=== PATIENT | male | born 1955 | race Caucasian/White ===

== ENCOUNTER 2016-07-30 11:14 | Emergency (ER) | payer BC ==
[2016-07-30] MEDS ORDERED: Sodium Chloride 0.9% 10 ML Syringe FLUSH PRN (11:32)
[2016-07-30] MEDS ORDERED: methylPREDNISolone Sodium Succinate 125 MG/2 ML SDV IVPUSH ONE (11:45)
[2016-07-30] MEDS ORDERED: Labetalol 100 MG/20 ML MDV IVPUSH ONE ×7 (11:45→15:57)
[2016-07-30] MEDS ORDERED: Meclizine 12.5 MG Tab PO ONE (13:00)
--- NOTE | 2016-07-30 13:01 | EDM.PDOC ---
ED HPI DIZZINESS - General Chief Complaint: Neurological Problem Stated Complaint: [facility] Time Seen by Provider: 07/30/16 11:20 Source of Information: Reports: Patient, RN notes reviewed - History of Present Illness INITIAL COMMENTS - FREE TEXT/NARRATIVE: 61-year-old gentleman who had onset of quite severe vertigo this past morning about 4 hours ago. He states when he leaned down to put his shoes on and then brought his head back up he had the onset of vertigo-type dizziness. He did try go to work for a while but just not feel well and a general sense. He had some nausea and continued to have some vertigo-type dizziness with some movement. It no headache or chest discomfort. The vertigo then became worse and he started vomiting. At that Point he went to the [facility]. On arrival at the [facility] his blood pressure was extremely high in the 220/[address] elevation anteriorly. He continued to have no chest pain. However with his continued very high blood pressure readings, EKG abnormality he was transferred here for further evaluation. On arrival to the ED his major symptom continues to be that of the vertigo-type dizziness. He feels better when lying still but any type of motion makes him extremely nauseated. He describes spinning type of vertigo dizziness. He states when he looks at the window of the door right in front of him that the window seems to be "quivering". No throat or sinus discomfort. No ear discomfort. He continues to have no headache. No peripheral numbness, tingling or weakness. He states he has had borderline hypertension in the past but admits he has not had his blood pressure checked in a very long time. he does not smoke. - Related Data Allergies/ADRs: Allergies Allergy/AdvReac Type Severity Reaction Status Date / Time acetaminophen Allergy Rash Verified 07/30/16 11:19 [From Darvocet-N] propoxyphene Allergy Rash Verified 07/30/16 11:19 [From Darvocet-N] Home Meds: Home Meds Allopurinol [Allopurinol] 100 mg PO DAILY 07/30/16 [History] Aspirin [Ecotrin] 81 mg PO DAILY 07/30/16 [History] Rosuvastatin [Crestor] 40 mg PO DAILY 07/30/16 [History] Social & Family History - Tobacco Use Smoking Status *Q: Never Smoker - Recreational Drug Use Recreational Drug Use: No ED ROS GENERAL - Review of Systems Review Of Systems: See Below Constitutional: Denies: fever, chills, diaphoresis HEENT: Reports: Vertigo, Vision change (He states objects seem to be moving as he looks at them at this time). Denies: Ear discharge, Ear pain, Eye pain Respiratory: Denies: Shortness of Breath Cardiovascular: Denies: Chest pain Endocrine: Denies: fatigue GI/Abdominal: Reports: Nausea, Vomiting. Denies: Abdominal pain, Diarrhea Musculoskeletal: Denies: back pain, leg pain, joint pain Skin: Reports: no symptoms Neurological: Denies: Headache, Numbness, Tingling, Trouble Speaking, Weakness, Change in Speech, Gait Disturbance ED EXAM, DIZZINESS - Physical Exam Exam: See Below General Appearance: alert, mild distress Eye Exam: bilateral eye: PERRL Nystagmus: constant Ears: normal canal, normal TMs Nose: normal inspection Throat/Mouth: Normal inspection, Normal oropharynx Head Exam: atraumatic. No: facial swelling Vertigo: reproducible Neck: supple, full range of motion. No: lymphadenopathy (L), lymphadenopathy (R ) Respiratory/Chest: no respiratory distress, lungs clear, normal breath sounds GI/Abdominal: soft, non tender Neurological: alert, no motor/sensory deficits Back Exam: No: CVA tenderness (L), CVA tenderness (R) Extremities: normal inspection. No: pedal edema, leg pain Skin Exam: Warm, Normal color EKG INTERPRETATION EKG Date: 07/30/16 Rhythm: NSR P-wave: present QRS: normal ST-T: depressed (One and [address] elevation in V2, slight ST elevation in V3 T wave inversion in V6) Course - Vital Signs Last Recorded V/S: Last Vital Signs Temp 98.0 F 07/30/16 11:20 Pulse 69 07/30/16 15:06 Resp 17 07/30/16 11:20 BP 155/101 H 07/30/16 15:06 Pulse Ox 95 07/30/16 11:20 - Orders/Labs/Meds Orders: Active Orders 24 hr Category Date Time Status EKG 12 Lead [EKG Documentation Completion] [RC] STAT Care 07/30/16 11:34 Active Peripheral IV Care [RC] . DIRECTED Care 07/30/16 11:34 Active UA W/MICROSCOPIC [URIN] Stat Lab 07/30/16 15:30 Ordered Sodium Chloride 0.9% [Saline Flush] Med 07/30/16 11:32 Active 10 ml FLUSH ASDIRECTED PRN Peripheral IV Insertion Adult [OM.PC] Stat Oth 07/30/16 11:34 Ordered Medication Orders Sodium Chloride (Saline Flush) 10 ml FLUSH ASDIRECTED PRN PRN Reason: Keep Vein Open Last Admin: 07/30/16 12:00 Dose: 10 ml Labs: Laboratory Tests 07/30/16 07/30/16 07/30/16 Range/Units 11:45 11:55 11:55 WBC 12.68 H (4.23-9.07) K/mm3 RBC 5.47 (4.63-6.08) M/mm3 Hgb 16.3 (13.7-17.5) gm/L Hct 47.9 (40.1-51.0) % MCV 87.6 (79.0-92.2) fl MCH 29.8 (25.7-32.2) pg MCHC 34.0 (32.2-35.5) g/dl RDW Std Deviation 47.2 H (35.1-43.9) fL Plt Count 221 (163-337) K/mm3 MPV 10.2 (9.4-12.3) fl Neut % (Auto) 89.6 H (34.0-67.9) % Lymph % (Auto) 5.4 L (21.8-53.1) % [place] % (Auto) 3.3 L (5.3-12.2) % Eos % (Auto) 1.2 (0.8-7.0) Baso % (Auto) 0.3 (0.1-1.2) % Neut # (Auto) 11.36 H (1.78-5.38) K/mm3 Lymph # (Auto) 0.69 L (1.32-3.57) K/mm3 [place] # (Auto) 0.42 (0.30-0.82) K/mm3 Eos # (Auto) 0.15 (0.04-0.54) K/mm3 Baso # (Auto) 0.04 (0.01-0.08) K/mm3 Manual Slide Review Abnormal smear Sodium 142 (136-145) mEq/L Potassium 5.0 (3.5-5.1) mEq/L Chloride 106 (98-107) mEq/L Carbon Dioxide 28 (21-32) mEq/L Anion Gap 13.0 (5-15) BUN 19 H (7-18) mg/dL Creatinine 1.3 (0.7-1.3) mg/dL Est Cr Clr Drug Dosing 63.17 mL/min Estimated GFR (MDRD) 57 (>60) mL/min BUN/Creatinine Ratio 14.6 (14-18) Glucose 124 H (74-106) mg/dL Calcium 9.1 (8.5-10.1) mg/dL Total Bilirubin 0.5 (0.2-1.0) mg/dL AST 19 (15-37) U/L ALT 36 (16-63) U/L Alkaline Phosphatase 66 (46-116) U/L Troponin I 0.023 (0.00-0.056) ng/mL Total Protein 7.7 (6.4-8.2) g/dl Albumin 4.4 (3.4-5.0) g/dl Globulin 3.3 gm/dL Albumin/Globulin Ratio 1.3 (1-2) // Range/Units 14:15 WBC (4.23-9.07) K/mm3 RBC (4.63-6.08) M/mm3 Hgb (13.7-17.5) gm/L Hct (40.1-51.0) % MCV (79.0-92.2) fl MCH (25.7-32.2) pg MCHC (32.2-35.5) g/dl RDW Std Deviation (35.1-43.9) fL Plt Count (163-337) K/mm3 MPV (9.4-12.3) fl Neut % (Auto) (34.0-67.9) % Lymph % (Auto) (21.8-53.1) % [place] % (Auto) (5.3-12.2) % Eos % (Auto) (0.8-7.0) Baso % (Auto) (0.1-1.2) % Neut # (Auto) (1.78-5.38) K/mm3 Lymph # (Auto) (1.32-3.57) K/mm3 [place] # (Auto) (0.30-0.82) K/mm3 Eos # (Auto) (0.04-0.54) K/mm3 Baso # (Auto) (0.01-0.08) K/mm3 Manual Slide Review Sodium (136-145) mEq/L Potassium (3.5-5.1) mEq/L Chloride (98-107) mEq/L Carbon Dioxide (21-32) mEq/L Anion Gap (5-15) BUN (7-18) mg/dL Creatinine (0.7-1.3) mg/dL Est Cr Clr Drug Dosing mL/min Estimated GFR (MDRD) (>60) mL/min BUN/Creatinine Ratio (14-18) Glucose (74-106) mg/dL Calcium (8.5-10.1) mg/dL Total Bilirubin (0.2-1.0) mg/dL AST (15-37) U/L ALT (16-63) U/L Alkaline Phosphatase (46-116) U/L Troponin I 0.022 (0.00-0.056) ng/mL Total Protein (6.4-8.2) g/dl Albumin (3.4-5.0) g/dl Globulin gm/dL Albumin/Globulin Ratio (1-2) Meds: Medications Generic Name Dose Route Start Last Admin Trade Name Freq PRN Reason Stop Dose Admin Sodium Chloride 10 ml 07/30/16 11:32 07/30/16 12:00 Saline Flush FLUSH 10 ml ASDIRECTED PRN Administration Keep Vein Open Discontinued Medications Generic Name Dose Route Start Last Admin Trade Name Freq PRN Reason Stop Dose Admin Diazepam 2 mg 07/30/16 11:48 07/30/16 12:05 Valium IVPUSH 07/30/16 11:49 2 mg ONETIME ONE Administration Labetalol HCl 20 mg 07/30/16 11:45 07/30/16 11:58 Normodyne IVPUSH 07/30/16 11:46 20 mg ONETIME ONE Administration Protocol Labetalol HCl 20 mg 07/30/16 12:22 07/30/16 12:25 Normodyne IVPUSH 07/30/16 12:23 20 mg ONETIME ONE Administration Protocol Labetalol HCl 20 mg 07/30/16 12:58 07/30/16 13:09 Normodyne IVPUSH 07/30/16 12:59 20 mg ONETIME ONE Administration Protocol Labetalol HCl 20 mg 07/30/16 13:53 07/30/16 13:57 Normodyne IVPUSH 07/30/16 13:54 20 mg ONETIME ONE Administration Protocol Labetalol HCl 20 mg 07/30/16 14:16 07/30/16 14:20 Normodyne IVPUSH 07/30/16 14:17 20 mg ONETIME ONE Administration Protocol Labetalol HCl 20 mg 07/30/16 14:59 07/30/16 15:06 Normodyne IVPUSH 07/30/16 15:00 20 mg ONETIME ONE Administration Protocol Labetalol HCl 20 mg 07/30/16 15:57 Normodyne IVPUSH 07/30/16 15:58 ONETIME ONE Protocol Meclizine HCl 25 mg 07/30/16 13:00 07/30/16 13:09 Antivert PO 07/30/16 13:01 25 mg ONETIME ONE Administration Methylprednisolone Sodium Succinate 125 mg 07/30/16 11:45 07/30/16 11:55 Solu-Medrol IVPUSH 07/30/16 11:46 125 mg ONETIME ONE Administration - Re-Assessments/Exams Free Text/Narrative Re-Assessment/Exam: 07/30/16 15:00. Blood pressure was elevated here as well, see flow sheet. However the vertigo nausea and persistent dizziness was patient's main symptomatology on arrival to the ED. He continued to have no chest pain or difficulty breathing. He had been given Zofran 8 mg IM at the [facility] prior to transfer. We have given Solu-Medrol 125 mg IV, Valium 2 mg IV, Antivert 25 mg by mouth and with that the dizziness, vertigo has completely resolved. He had segments at rest on arrival and that also has resolved. Pressures slowly improved to around 150/100. We have given about 6 doses of labetalol 20 mg IV to accomplish that over the past 3 1/2 hours. I did do a head CT that was normal. Labs are as documented. He does feel up to going home to allow him to do so on oral labetalol 100 mg twice a day for 2 days and then 200 mg twice a day. Followup at clinic in 4 days. Discharge instructions as documented Departure - Departure Time of Disposition: 16:20 Disposition: Home, Self-Care 01 Condition: fair Clinical Impression: Hypertension Qualifiers: Hypertension type: essential hypertension Qualified Code(s): I10 - Essential ( primary) hypertension Labyrinthitis Qualifiers: Laterality: unspecified laterality Qualified Code(s): H83.09 - Labyrinthitis, unspecified ear Forms: ED Department Discharge Additional Instructions: Rest, move slowly and carefully, increase activity slowly as tolerated, labetalol 100 mg or one half of a 200 mg tablet twice daily for 4 doses and then increase to 200 mg twice daily. Try check blood pressure about twice a day , keep a log. Followup at the [facility] Wednesday. Call for appointment. Antivert or meclizine 25 mg twice daily for 2 days and then every 12 hours if needed for further vertigo or dizziness. Try eat a cardiac healthy diet, try begin a regular aerobic exercise program if you're not already doing that. Return to ED as needed - My Orders Last 24 Hours: My Active Orders 07/30/16 11:32 Sodium Chloride 0.9% [Saline Flush] 10 ml FLUSH ASDIRECTED PRN 07/30/16 11:34 EKG 12 Lead [EKG Documentation Completion] [RC] STAT Peripheral IV Care [RC] . DIRECTED Peripheral IV Insertion Adult [OM.PC] Stat 07/30/16 15:30 UA W/MICROSCOPIC [URIN] Stat - Assessment/Plan Last 24 Hours: My Active Orders 07/30/16 11:32 Sodium Chloride 0.9% [Saline Flush] 10 ml FLUSH ASDIRECTED PRN 07/30/16 11:34 EKG 12 Lead [EKG Documentation Completion] [RC] STAT Peripheral IV Care [RC] . DIRECTED Peripheral IV Insertion Adult [OM.PC] Stat 07/30/16 15:30 UA W/MICROSCOPIC [URIN] Stat
--- NOTE | 2016-07-30 15:50 | CT ---
Head CT Technique: Multiple axial sections through the brain were obtained. Intravenous contrast was not utilized. Comparison: No previous intracranial imaging. Findings: Ventricles along with basal cisterns and sulci over the convexities are within normal limits for the patient's age. No abnormal parenchymal densities are seen. No evidence of intracranial hemorrhage. No midline shift or mass effect is seen. Bone window settings were reviewed which show no discrete calvarial abnormality. Mild mucosal thickening seen within the ethmoid and within the maxillary sinuses. Impression: 1. Sinus findings most likely chronic. 2. No acute intracranial abnormality is seen. Agree with preliminary report issued by [facility] (preliminary report dictated on 07/30/16, 2:54 PM Central Time) Diagnostic code #2
[2016-07-30 16:54] VITALS: BP 172/103
== END 2016-07-30 16:46 | disposition home or self-care (01) ==
LOC: JD.ED 11:14
DX: I10 Essential (primary) hypertension (principal); H83.09 Labyrinthitis, unspecified ear; Z88.8 Allergy status to other drugs, medicaments and biological substances; Z79.82 Long term (current) use of aspirin; Z79.899 Other long term (current) drug therapy
CPT/HCPCS: 36415; 70450; 80053; 81001; 84484; 85025; 93005; 96374; 96375; 96376; 99285; A9270; J2930; J3360; J7050